=== PATIENT | male | born 1975 | race Caucasian/White ===

== ENCOUNTER 2022-02-11 12:38 | Emergency (ER) | payer OTHER ==
[~2022-02-11] VITALS: Ht 175.3 cm; Wt 866.4 kg
[2022-02-11] MEDS ORDERED: PEPCID AC20 MG PO (18:29)
[2022-02-11] MEDS ORDERED: CIPRO500 MG PO ×2 (18:29→18:31)
[2022-02-11] MEDS ORDERED: METRONIDAZOLE500 MG PO (18:31)
== END 2022-02-11 18:39 | disposition home or self-care (01) ==
LOC: ER 12:38
DX: K57.32 Diverticulitis of large intestine without perforation or abscess without bleeding (principal); I10 Essential (primary) hypertension